=== PATIENT | male | born 1985 | race Caucasian/White ===

== ENCOUNTER 2017-03-07 10:08 | Emergency (ER) | payer MEDICAID ==
[~2017-03-07] VITALS: Ht 30.5 cm; Wt 2.4 kg
[2017-03-07 10:23] VITALS: Ht 30.5 cm; Wt 2.4 kg
[2017-03-07 11:56] LABS: UA SPECIFIC GRAVITY 1.025 (1.005-1.035); microscopic required? YES; urine erythrocyte NEGATIVE (NEGATIVE)
[2017-03-07 13:28] VITALS: BP 117/51
== END 2017-03-07 13:28 | disposition home or self-care (01) ==
LOC: ED 10:08
PROVIDERS: Emergency Medicine
DX: B34.9 Viral infection, unspecified (principal); N50.819 Testicular pain, unspecified; Z88.0 Allergy status to penicillin
CPT/HCPCS: 87491; 87591; J1885; J7613; J7644; Q0092; Q0162

== ENCOUNTER 2017-11-04 04:32 | Emergency (ER) | payer MEDICAID ==
[~2017-11-04] VITALS: Ht 167.6 cm; Wt 84.9 kg
[2017-11-04 04:37] VITALS: Ht 167.6 cm; Wt 84.9 kg
[2017-11-04 06:25] VITALS: BP 114/71
== END 2017-11-04 06:25 | disposition home or self-care (01) ==
LOC: ED 04:32
DX: L03.116 Cellulitis of left lower limb (principal); Z88.0 Allergy status to penicillin
CPT/HCPCS: J0690

== ENCOUNTER 2018-01-10 05:14 | Emergency (ER) | payer MEDICAID ==
[~2018-01-10] VITALS: Ht 167.6 cm; Wt 83.5 kg
[2018-01-10 05:26] VITALS: BP 136/81; Ht 167.6 cm; Wt 83.5 kg
== END 2018-01-10 08:02 | disposition home or self-care (01) ==
LOC: ED 05:14
DX: L60.0 Ingrowing nail (principal); L03.032 Cellulitis of left toe; Z90.89 Acquired absence of other organs
CPT/HCPCS: 90715

== ENCOUNTER 2018-01-12 04:52 | Emergency (ER) | payer MEDICAID ==
[~2018-01-12] VITALS: Ht 167.6 cm; Wt 84.0 kg
[2018-01-12 04:58] VITALS: Ht 167.6 cm; Wt 84.0 kg
[2018-01-12 05:35] VITALS: BP 122/74
== END 2018-01-12 05:35 | disposition home or self-care (01) ==
LOC: ED 04:52
DX: S91.202D Unspecified open wound of left great toe with damage to nail, subsequent encounter (principal); Z90.89 Acquired absence of other organs; Z88.0 Allergy status to penicillin; X58.XXXD Exposure to other specified factors, subsequent encounter

== ENCOUNTER 2018-11-07 00:57 | Emergency (ER) | payer MEDICAID ==
[~2018-11-07] VITALS: Ht 172.7 cm; Wt 88.5 kg
[2018-11-07 01:09] VITALS: Ht 172.7 cm; Wt 88.5 kg
[2018-11-07 04:34] VITALS: BP 123/56
== END 2018-11-07 04:34 | disposition home or self-care (01) ==
LOC: ED 00:57
DX: M54.5 Low back pain (principal); N50.812 Left testicular pain; R10.9 Unspecified abdominal pain
CPT/HCPCS: J1885; J2270